=== PATIENT | female | born 1955 | race Caucasian/White ===

== ENCOUNTER → 2018-02-18 14:48 | Outpatient (CLI) | payer OTHER, SELFPAY ==
[2017-09-19 08:29] VITALS: BMI 35.1
[2018-02-25 16:09] LABS: HPV Reflexed? NOT INDICATED
== END ==
PROVIDERS: Visit Provider Obstetrics & Gynecology
DX: Z12.4 Encounter for screening for malignant neoplasm of cervix (principal)
CPT/HCPCS: 88175; G0145

== ENCOUNTER → 2018-06-08 12:36 | Outpatient (CLI) | payer MEDICARE, OTHER, SELFPAY ==
[2017-09-19 08:29] VITALS: BMI 35.1
--- NOTE | 2018-06-08 12:42 | BI_ITS ---
MAMMOGRAPHY - BILATERAL SCREENING REASON FOR EXAM: Female, 63 years old. Routine annual screening examination. PERTINENT HISTORY: Non-contributory. TECHNIQUE: Digital bilateral breast edis (3D mammographic acquisition) in the CC and MLO projections. 2-D mediolateral oblique (MLO) and craniocaudad (CC) views of both breasts were obtained. CAD: Full Field Digital Mammography with Computer Added Detection was performed. COMPARISON: Comparison is made with prior study dated May 06, 2016 and May 12, 2013. FINDINGS: Breast Composition: There are scattered areas of fibroglandular density. There are no dominant masses or suspicious calcifications. No other significant abnormalities are identified. There has been no significant change since the prior study. BI/SCREENING MAMM (CAD), BILAT IMPRESSION: Stable bilateral screening mammogram. Yearly follow-up mammogram recommended. (A) ASSESSMENT CATEGORY: BIRADS Category 1: Negative. A letter regarding these results will be sent to the patient by the facility within 30 days. Approximately 10% of breast cancers are not detected by mammography. A normal mammogram should not delay biopsy of a clinically suspicious abnormality. [id number] Electronically Signed: Callum Mena, at 15:47 EDT , Service support ,
--- NOTE | 2018-06-08 13:17 | BD_ITS ---
STUDY: DUAL ENERGY X-RAY ABSORPTIOMETRY / DXA REASON FOR EXAM: Female, 63 years old. The patient is postmenopausal. No loss of height. TECHNIQUE: Bone Mineral Density (BMD) measurements of lumbar spine and bilateral hips were obtained. COMPARISON: Comparison is made with prior study dated October 31, 2010. FINDINGS: Lumbar Spine (L1-L4): g/cm2 (1.370) / T-score (1.6) / Z-score (3.2) Findings are suggestive of normal bone density with a low fracture risk. Left Femur Total: g/cm2 (1.063) / T-score (0.4) / Z-score (1.6) Left Femoral Neck: g/cm2 (0.873) / T-score (-1.2) / Z-score (0.3) Right Femur Total: g/cm2 (0.988) / T-score (-0.2) / Z-score (1.0) Right Femoral Neck: g/cm2 (0.828) / T-score (-1.5) / Z-score (-0.1) The T-Scores on the most recent prior examination were: Lumbar Spine (L1-L4): There has been improvement of bone density since the previous examination. Left Femur Total: which represents an improvement of 8.1%. Right Femur Total: which represents an improvement of 4%. BD/Dexa Bone Density Study IMPRESSION: The patient is considered osteopenic as outlined below according to World Osorio Organization (WHO) criteria with a low fracture risk. There has been improvement of bone density since the previous examination. Reference Information: The T-score is the number of standard deviations above or below the standard which is normal for young adults at their peak bone mineral density. The World Health Organization (WHO) interprets the T-scores as follows: Above -1 Normal bone density Between -1 and -2.5 Osteopenia Equal to / or below -2.5 Osteoporosis As a practical clinical guideline, osteopenia may be graded as follows: Mild -1 through -1.5 Moderate -1.6 through -2.0 Severe -2.1 through -2.4 The Z-score is the number of standard deviations above or below age-matched controls. A Z-score of less than -1.5 would be considered abnormal. References: 1. NIH Osteoporosis and Related Bone Diseases http://www.osteo.org 2. International Society for Clinical Densitometry http://www.iscd.org 3. National Osteoporosis Foundation http://www.nof.org Electronically Signed: Callum Mena, at 14:45 EDT , Service support ,
--- NOTE | 2018-06-08 13:35 | CDU_ITS ---
Reason For Study: carotid occlusion Rt. Velocities/BP Lt. Velocities/BP Prox CCA 106/10.8 cm/sec. Prox CCA 113.8/17.3 cm/sec. Mid CCA 113.9/14.7 cm/sec. Mid CCA 116.4/18.6 cm/sec. Dist CCA 103.4/20.0 cm/sec. Dist CCA 107.3/18.6 cm/sec. Prox ICA 77.3/16.0 cm/sec. Prox ICA 76.0/19.9 cm/sec. Mid ICA 64.3/16.0 cm/sec. Mid ICA 82.5/25.2 cm/sec. Dist ICA 90.4/28.3 cm/sec. Dist ICA 96.9/34.3 cm/sec. Rt. ICA/CCA = .8. Lt. ICA/CCA = .8. Prox ECA 100.8/10.8 cm/sec. Prox ECA 86.5/12.1 cm/sec. Rt. Vert. 49.9/17.3 cm/sec. Lt. Vert. 47.3/12.1 cm/sec. Right Extracranial There is intimal thickening but no significant atherosclerotic plaque noted in the right common carotid artery. There is intimal thickening but no significant atherosclerotic plaque noted in the right internal carotid artery. There is intimal thickening but no significant atherosclerotic plaque noted in the right external carotid artery. Antegrade flow is noted in the right vertebral artery. Left Extracranial There is intimal thickening but no significant atherosclerotic plaque noted in the left common carotid artery. There is intimal thickening but no significant atherosclerotic plaque noted in the left internal carotid artery. There is intimal thickening but no significant atherosclerotic plaque noted in the left external carotid artery. Antegrade flow is noted in the left vertebral artery. Procedure Carotid Duplex 11331. The exam was diagnostic. Exam performed in department. Interpretation Summary No significant atherosclerotic plaque or stenosis noted in the internal carotid arteries bilaterally. Flow within the vertebral arteries is antegrade bilaterally. Ordering Physician: Yaneth Moffett Performed By: Michel Jaimes RVT
== END ==
PROVIDERS: Family Provider Internal Medicine; PCP Internal Medicine; Referring Provider Internal Medicine; Visit Provider Internal Medicine
DX: Z12.31 Encounter for screening mammogram for malignant neoplasm of breast (principal); Z78.0 Asymptomatic menopausal state; I65.23 Occlusion and stenosis of bilateral carotid arteries
CPT/HCPCS: 77063; 77067; 77080; 93880

== ENCOUNTER → 2018-07-08 08:57 | Outpatient (CLI) | payer MEDICARE, OTHER, SELFPAY ==
[2017-09-19 08:29] VITALS: BMI 35.1
--- NOTE | 2018-07-08 09:01 | RAD_ITS ---
STUDY: X-RAY - ESOPHAGUS (BARIUM SWALLOW) WITH FLUOROSCOPY REASON FOR EXAM: Female, 63 years old. 1 month history of dysphagia for solids and reflux. TECHNIQUE: 17 view(s) of the esophagus were obtained following swallowing of barium. FLUOROSCOPY TIME (if supplied): (0:28) minutes/seconds COMPARISON: None. FINDINGS: There is no demonstrated esophageal foreign body. There is no demonstrated stricture or mucosal abnormality. Normal gastroesophageal junction, without a demonstrated hiatal hernia. The patient ingested a 12 mm tablet of barium without any difficulty. Normal visualized aortic arch and descending thoracic aorta. Normal visualized pulmonary parenchyma. Normal visualized osseous structures of the thorax. RAD/Esophagus Only IMPRESSION: Normal plain film x-ray examination (barium swallow) of the esophagus. Electronically Signed: Callum Mena, at 10:19 EDT , Service support ,
== END ==
PROVIDERS: Family Provider Internal Medicine; PCP Internal Medicine; Referring Provider Internal Medicine; Visit Provider Internal Medicine
DX: R13.10 Dysphagia, unspecified (principal)
CPT/HCPCS: 74220

== ENCOUNTER → 2019-01-21 10:33 | Outpatient (CLI) | payer MEDICARE, OTHER, SELFPAY ==
[2017-09-19 08:29] VITALS: BMI 35.1
[2019-01-21 11:21] LABS: Anion Gap 5 (5-15); BUN 18 mg/dL (7-18); BUN/Creat Ratio 15.5 RATIO (10-20); Calcium,Total 8.8 mg/dL (8.5-10.1); Chloride 107 mmol/L (98-107); Creatinine, Serum 1.16 mg/dL (0.55-1.02); EST Glomerular Filtration Rate 50 mL/min (>60); Est Glom Filt Rate - Afr Amer 60 mL/min (>60); Glucose 115 mg/dL (74-106); Potassium 4.2 mmol/L (3.5-5.1); Sodium Level 140 mmol/L (136-145)
--- NOTE | 2019-01-21 11:30 | MRI_ITS ---
STUDY: MRI RIGHT ANKLE WITH AND WITHOUT CONTRAST REASON FOR EXAM: Female, 63 years old. Ganglion cyst. TECHNIQUE: Standarized fat and water weighted pulse sequences were obtained in all 3 orthogonal plane pre and post intravenous administration of IV Dotarem 10. COMPARISON: None. FINDINGS: There is loculated nonenhancing fluid collection at the anterior aspect including involving the extensor digitorum muscle and tendons with a component measuring 2.2 x 2.0 cm and 3.1 x 1.5 cm. Normal posterior tibialis tendon. Normal flexor digitorum longus tendon. Normal flexor hallucis longus tendon. Normal peroneus longus and brevis tendons. Normal tibialis anterior tendon. Normal extensor hallucis longus tendon. Normal extensor digitorum longus tendons. Normal Achilles tendon and teno-osseous insertion. Normal plantar fascia. Normal plantar calcaneal tubercles. Normal intrinsic muscles of the rearfoot. Normal distal tibiofibular syndesmotic ligamentous complex. Normal lateral ligamentous complex. Normal subtalar ligaments and sinus tarsi. Normal deltoid ligamentous complexes. Normal plantar calcaneonavicular (spring) ligament. Normal tibiotalar articulation. Normal talar dome. Normal subtalar articulations. Normal talonavicular articulation. Normal calcaneocuboid articulation. Normal navicular-cuneiform articulations. There is no abnormal contrast enhancement. MRI/Lower Ext Joint Only W/WO Cont IMPRESSION: Ganglia on the lateral volar aspect including involving the extensor digitorum. Electronically Signed: Carlito Reilly MD at 13:48 EST , Service support ,
== END ==
PROVIDERS: Family Provider Internal Medicine; PCP Internal Medicine; Referring Provider Podiatrist; Visit Provider Podiatrist
DX: M67.471 Ganglion, right ankle and foot (principal); D21.21 Benign neoplasm of connective and other soft tissue of right lower limb, including hip
CPT/HCPCS: 36415; 73723; 80048; A9575

== ENCOUNTER → 2019-03-17 13:16 | Outpatient (CLI) | payer MEDICARE, OTHER, SELFPAY ==
[2017-09-19 08:29] VITALS: BMI 35.1
--- NOTE | 2019-03-17 13:21 | CT_ITS ---
STUDY: CT MAXILLOFACIAL SINUSES REASON FOR EXAM: Female, 63 years old. Acute recurrent ethmoid sinusitis, antibiotics x 4, hypertension. Perceptive Pixel navigation protocol. RADIATION DOSAGE (If Supplied By Facility): CTDIvol = ( 33.06 ) mGy, DLP = ( 788.40 ) mGycm TECHNIQUE: The patient was scanned in a multi detector CT scanner. High resolution axial imaging was performed without the administration of intravenous contrast material. Sagittal and coronal images were reconstructed. Individualized dose optimization techniques were used for this CT. COMPARISON: None. FINDINGS: FRONTAL SINUSES: Normal aeration, without mucosal inflammatory disease. ETHMOIDAL SINUSES: Normal aeration, without mucosal inflammatory disease. MAXILLARY SINUSES: Normal aeration, without mucosal inflammatory disease. SPHENOIDAL SINUSES: Normal aeration, without mucosal inflammatory disease. There is patency of the bilateral maxillary infundibuli with normal uncinate processes, ethmoid bullae, and hiatus semilunaris. Normal bilateral middle turbinates. Normal bilateral inferior turbinates. There is a left sided nasal septal deviation, but without a nasal septal spur. There is patency of the bilateral nasal airways. The visualized osseous structures are normal. The visualized bilateral orbital contents are normal. CT/Sinus/Facial Bone IMPRESSION: Normal CT examination of the maxillofacial sinuses. Electronically Signed: Callum Mena, at 14:00 EST , Service support ,
== END ==
PROVIDERS: Family Provider Internal Medicine; PCP Internal Medicine; Referring Provider Otolaryngology; Visit Provider Otolaryngology
DX: J01.21 Acute recurrent ethmoidal sinusitis (principal)
CPT/HCPCS: 70486

== ENCOUNTER → 2019-08-04 | Outpatient (CLI) | payer MEDICARE, OTHER, SELFPAY ==
[2017-09-19 08:29] VITALS: BMI 35.1
--- NOTE | 2019-08-04 14:34 | RAD_ITS ---
STUDY: X-RAY - RIGHT KNEE REASON FOR EXAM: Female, 64 years old. PAIN TECHNIQUE: 4 view(s) of the knee. COMPARISON: None. FINDINGS: Normal visualized distal femur. Normal visualized proximal tibia and fibula. Normal proximal tibiofibular articulation. Normal medial femorotibial compartment. Normal lateral femorotibial compartment. Normal patellofemoral articulation. The soft tissue structures are unremarkable. RAD/Knee 4 or More Views IMPRESSION: Normal x-ray examination of the knee. Electronically Signed: Arnoldo Coronel MD at 17:09 EDT Tel , Service support ,
== END | disposition home or self-care (01) ==
PROVIDERS: PCP Internal Medicine; Referring Provider Internal Medicine; Visit Provider Internal Medicine
DX: M25.561 Pain in right knee (principal)
CPT/HCPCS: 73564

== ENCOUNTER → 2020-02-09 15:07 | Outpatient (CLI) | payer MEDICARE, OTHER, SELFPAY ==
[2017-09-19 08:29] VITALS: BMI 35.1
--- NOTE | 2020-02-09 15:08 | BI_ITS ---
MAMMOGRAPHY - BILATERAL SCREENING REASON FOR EXAM: Female, 64 years old. Routine annual screening examination. PERTINENT HISTORY: Non-contributory. TECHNIQUE: Digital bilateral breast january (3D mammographic acquisition) in the CC and MLO projections. 2-D mediolateral oblique (MLO) and craniocaudad (CC) views of both breasts were obtained. CAD: Full Field Digital Mammography with Computer Added Detection was performed. COMPARISON: Comparison is made with prior study dated 06/08/2018 and 05/06/2016. FINDINGS: Breast Composition: There are scattered areas of fibroglandular density. There are no dominant masses or suspicious calcifications. Faint 5.9 mm nodule seen in the midportion of the right breast on the craniocaudad view. Correlation with ultrasound is recommended. No other significant abnormalities are identified. BI/SCREEN MAMM (CAD) W/JANUARY BILAT IMPRESSION: Faint 5.9 mm nodule in the midportion of the right breast as described on the craniocaudad view. Correlation with ultrasound is recommended. ASSESSMENT CATEGORY: BIRADS Category 0: Incomplete. Need additional imaging evaluation. A letter regarding these results will be sent to the patient by the facility within 30 days. Approximately 10% of breast cancers are not detected by mammography. A normal mammogram should not delay biopsy of a clinically suspicious abnormality. [id number] Electronically Signed: Callum Mena, at 15:58 EST , Service support ,
== END ==
PROVIDERS: PCP Internal Medicine; Referring Provider Obstetrics & Gynecology; Visit Provider Obstetrics & Gynecology
DX: Z12.31 Encounter for screening mammogram for malignant neoplasm of breast (principal)
CPT/HCPCS: 77063; 77067

== ENCOUNTER → 2020-02-15 08:15 | Outpatient (CLI) | payer MEDICARE, OTHER, SELFPAY ==
[2017-09-19 08:29] VITALS: BMI 35.1
--- NOTE | 2020-02-15 08:18 | US_ITS ---
STUDY: ULTRASOUND BREAST - RIGHT REASON FOR EXAM: Female, 64 years old. Abnormal screening mammogram. TECHNIQUE: Axial and longitudinal images of the RIGHT breast were performed with a high resolution ultrasound transducer. # OF IMAGES: 40 COMPARISON: Comparison is made with prior mammogram dated 02/09/2020. FINDINGS: RIGHT Breast: There is a 5 mm x 6 mm x 5 mm hypoechoic solid nodule with irregular contour and heterogeneous echotexture. This is at the 11 o''clock position of the breast at 3 cm from the nipple. A biopsy is recommended. US/Breast Limited Unilateral IMPRESSION: The mammographic abnormality corresponds to a 6 mm x 5 mm x 5 mm irregular heterogeneous nodule at the 11 o''clock position of the breast at 3 cm from the nipple. A biopsy is recommended for further evaluation. ASSESSMENT CATEGORY: BIRADS Category 4: Suspicious - Biopsy Should Be Considered. A letter regarding these results will be sent to the patient by the facility within 30 days. Electronically Signed: Callum Mena, at 13:06 EST , Service support ,
== END ==
LOC: OPUS 08:16
PROVIDERS: PCP Internal Medicine; Referring Provider Obstetrics & Gynecology; Visit Provider Obstetrics & Gynecology
DX: R92.8 Other abnormal and inconclusive findings on diagnostic imaging of breast (principal)
CPT/HCPCS: 76642

== ENCOUNTER → 2020-03-05 15:30 | Outpatient (CLI) | payer MEDICARE, OTHER, SELFPAY ==
[2020-03-05 12:31] VITALS: BMI 38.4
--- NOTE | 2020-03-05 12:45 | BRBX_PTH ---
PATIENT: CHIVO VENTURA LOC: [facility] U#:[id number] AGE/SX: 69/F ROOM: RE03/05/[address]: Dr. Vito Virgen MD : [id number] BED: DIS: SPEC #: [id number] RECD: 03/05/20 15:24 STATUS: LEROY RAJIV #: [id number] KANWAL: 03/05/20 12:[address]: Vito Virgen DEPT: SURGICAL PATHOLOGY RECD BY: Ivelisse Alvarez ENTERED: 03/06/20 07:56 SP TYPE: BREAST BX OTHR DR: Dr. Yaneth Moffett, DO Tissues: Breast, NOS Procedures: Surgery Specimen Level IV HEADER OPERATION: Right breast core biopsy PRE-OP DIAGNOSIS: Abnormal right breast ultrasound TISSUE SUBMITTED: Right breast tissue MICROSCOPIC DIAGNOSIS Right breast, core biopsy: Fibrocystic change. Intraductal hyperplasia without atypia. No evidence of malignancy. AM:viktoria 03/07/2020 MICROSCOPIC DESCRIPTION Slides are reviewed. GROSS DESCRIPTION Received in fixative is one container labeled with the patient name and designated right breast. The specimen consists of multiple elongated fragments of lopez-yellow fibroadipose tissue that in aggregate measure 1 x 0.3 x 0.1 cm. The entire specimen is submitted in one cassette. / SJ:viktoria 03/06/20 TC:5 CPT: 90140
== END ==
PROVIDERS: PCP Internal Medicine; Referring Provider Surgery; Visit Provider Surgery
DX: N62 Hypertrophy of breast (principal)
CPT/HCPCS: 88305

== ENCOUNTER → 2020-03-20 09:16 | Outpatient (CLI) | payer MEDICARE, OTHER, SELFPAY ==
[2020-03-05 12:31] VITALS: BMI 38.4
--- NOTE | 2020-03-20 09:18 | BI_ITS ---
MAMMOGRAPHY - UNILATERAL DIAGNOSTIC: RIGHT BREAST REASON FOR EXAM: Female, 64 years old. Clip placement following ultrasound-guided breast biopsy. PERTINENT HISTORY: TECHNIQUE: Mediolateral oblique and craniocaudad views of the right breast were obtained. CAD: Full Field Digital Mammography with Computer Added Detection was performed. COMPARISON: Comparison is made with prior mammogram dated 02/09/2020. FINDINGS: Breast Composition: There are scattered areas of fibroglandular density. There are no dominant masses or suspicious calcifications. A tissue clip marker is seen in the superior retroareolar region of the right breast. No other significant abnormalities are identified. BI/DIAG MAMM W/CAD, UNILAT IMPRESSION: The tissue clip marker is seen in the superior retroareolar region of the right breast. ASSESSMENT CATEGORY: BIRADS Category 2: Benign. A letter regarding these results will be sent to the patient by the facility within 30 days. Approximately 10% of breast cancers are not detected by mammography. A normal mammogram should not delay biopsy of a clinically suspicious abnormality. Electronically Signed: Callum Mena MD at 10:33 EST , Service support ,
== END ==
PROVIDERS: PCP Internal Medicine; Referring Provider Surgery; Visit Provider Surgery
DX: R92.2 Inconclusive mammogram (principal)
CPT/HCPCS: 77065

== ENCOUNTER 2021-04-18 08:00 | Outpatient (CLI) | payer MEDICARE, OTHER, SELFPAY ==
--- NOTE | 2021-04-18 08:03 | BI_ITS ---
MAMMOGRAPHY - BILATERAL SCREENING REASON FOR EXAM: Female, 65 years old. Routine annual screening examination. PERTINENT HISTORY: Non-contributory. History of prior right ultrasound-guided breast biopsy. TECHNIQUE: Digital bilateral breast january (3D mammographic acquisition) in the CC and MLO projections. 2-D mediolateral oblique (MLO) and craniocaudad (CC) views of both breasts were obtained. CAD: Full Field Digital Mammography with Computer Added Detection was performed. COMPARISON: Comparison is made with prior study dated 11/10/2019 and 06/08/2018. FINDINGS: Breast Composition: There are scattered areas of fibroglandular density. There are no dominant masses or suspicious calcifications. A tissue clip marker is seen in the superior retroareolar region of the right breast. No other significant abnormalities are identified. BI/SCRN MAMM (CAD)W/JANUARY BILAT IMPRESSION: Stable bilateral screening mammogram. Yearly follow-up mammogram recommended. (A) ASSESSMENT CATEGORY: BIRADS Category 2: Benign. A letter regarding these results will be sent to the patient by the facility within 30 days. Approximately 10% of breast cancers are not detected by mammography. A normal mammogram should not delay biopsy of a clinically suspicious abnormality. [id number] Electronically Signed: Callum Mena MD at 9:07 EST ,
== END 2021-04-18 23:59 | disposition home or self-care (01) ==
LOC: OPBI 08:01
PROVIDERS: PCP Internal Medicine; Visit Provider Obstetrics & Gynecology
DX: Z12.31 Encounter for screening mammogram for malignant neoplasm of breast (principal)
CPT/HCPCS: 77063; 77067

== ENCOUNTER 2021-06-10 12:31 | Outpatient (CLI) | payer MEDICARE, OTHER, SELFPAY ==
--- NOTE | 2021-06-10 12:36 | RAD_ITS ---
INDICATION: PAIN EXAMINATION/TECHNIQUE: X-RAY - LEFT XR Hip Unilateral with Pelvis when performed; 2-3 Views 3 VIEWS COMPARISON: 02/10/2013. FINDINGS: SOFT TISSUES: No soft tissue swelling or gas. No radiopaque foreign body. Narrowing of the hip joint spaces is visualized most prominent involving the left hip joint. There is moderate severe narrowing of the superior lateral joint space, increased density along the articular surfaces is visualized with mild irregularity seen in the contour of the left femoral head. No evidence of cortical irregularities or lucencies to suggest fracture. No evidence of dislocation is seen. Degenerative changes in the carpal bones is seen most prominent at the lumbosacral junction. Abundance of stool visualized in the large bowel and rectum. RAD/HIP, UNI W/ Pelvis 2-3 Views IMPRESSION: Degenerative changes visualized with narrowing of the left hip joint space. No acute osseous abnormality is seen. Electronically Signed: Felix Alfonso MD at 12:54 EDT ,
== END 2021-06-10 23:59 | disposition home or self-care (01) ==
PROVIDERS: PCP Internal Medicine; Referring Provider Internal Medicine; Visit Provider Internal Medicine
DX: M79.605 Pain in left leg (principal)
CPT/HCPCS: 73502

== ENCOUNTER → 2021-11-19 | Outpatient (CLI) | payer MEDICARE, OTHER, SELFPAY ==
--- NOTE | 2021-11-19 08:51 | EKG12_ITS ---
Test Reason : PREOP Blood Pressure : / mmHG Vent. Rate : 060 BPM Atrial Rate : 060 BPM P-R Int : 144 ms QRS Dur : 082 ms QT Int : 414 ms P-R-T Axes : 026 -23 -02 degrees QTc Int : 414 ms Normal sinus rhythm Normal ECG Confirmed by BELLA CASAS, GENOVEVA ([id number]), society editor PARTHA ROBERTS ([id number]) on 11/20/2021 9:04:50 AM Referred By: Tex Ventura Confirmed By:GENOVEVA BLANCO MD
[2021-11-19 10:02] LABS: Absolute Lymphocyte Count 1.35 X10^3/uL (0.83-4.51); Absolute Neutrophil Count 3.1 X10^3/uL (2.0-7.7); Basophil# 0.06 X10^3/uL; Basophil% 1.1 % (0-1); Eosinophil# 0.25 X10^3/uL; Eosinophils% 4.7 % (0-5); Hematocrit 35.2 % (37-47); Hemoglobin 11.7 g/dL (12.0-15.0); Lymphocyte # 1.35 X10^3/ul (0.83-4.51); Lymphocyte % 25.5 % (19-41); Mean Corp Hgb Conc 33.2 g/dL (32-36); Mean Corpuscular Hgb 30.5 pg (27.0-32.0); Mean Corpuscular Volume 91.7 fL (81-99); Mean Platelet Vol. 10.6 fl (6.2-12.0); Monocyte# 0.52 X10^3/uL; Monocyte% 9.8 % (0-10); NRBC Flagged by Analyzer 0 % (0-5); Neutrophil % 58.7 % (47-70); Platelet Count 236 K/mm3 (150-450); RBC Distribution Width CV 14.2 % (11.6-14.6); RBC Distribution Width SD 47.5 fl (35.1-43.9); Red Blood Count 3.84 M/mm3 (4.2-5.4); White Blood Count 5.3 K/mm3 (4.4-11.0)
[2021-11-19 10:20] LABS: Albumin, Serum 2.8 g/dL (3.2-5.0); Anion Gap 4 (5-15); BUN 19 mg/dL (7-18); BUN/Creat Ratio 18.8 RATIO (10-20); Calcium,Total 8.9 mg/dL (8.5-10.1); Chloride 108 mmol/L (98-107); Creatinine, Serum 1.01 mg/dL (0.55-1.02); EST Glomerular Filtration Rate 58 mL/min (>60); Est Glom Filt Rate - Afr Amer 70 mL/min (>60); Glucose 116 mg/dL (74-106); Sodium Level 141 mmol/L (136-145)
== END | disposition home or self-care (01) ==
LOC: PSN 08:49
PROVIDERS: PCP Internal Medicine; Referring Provider Physician Assistant Surgical; Visit Provider Physician Assistant Surgical
DX: Z01.818 Encounter for other preprocedural examination (principal); Z01.810 Encounter for preprocedural cardiovascular examination
CPT/HCPCS: 36415; 80048; 82040; 85025; 93005

== ENCOUNTER → 2021-11-21 | Outpatient (CLI) | payer MEDICARE, OTHER, SELFPAY ==
[2021-11-21 15:48] LABS: Albumin, Serum 3.2 g/dL (3.2-5.0)
== END | disposition home or self-care (01) ==
LOC: LABSPEC 15:09
PROVIDERS: PCP Internal Medicine; Visit Provider Internal Medicine
DX: R77.0 Abnormality of albumin (principal)
CPT/HCPCS: 82040

== ENCOUNTER → 2021-12-31 | Outpatient (CLI) | payer MEDICARE, OTHER, SELFPAY ==
[2021-12-31 08:58] LABS: Absolute Lymphocyte Count 1.48 X10^3/uL (0.83-4.51); Absolute Neutrophil Count 4.6 X10^3/uL (2.0-7.7); Basophil# 0.05 X10^3/uL; Basophil% 0.7 % (0-1); Eosinophil# 0.24 X10^3/uL; Eosinophils% 3.5 % (0-5); Hemoglobin 11.3 g/dL (12.0-15.0); Lymphocyte # 1.48 X10^3/ul (0.83-4.51); Lymphocyte % 21.4 % (19-41); Mean Corp Hgb Conc 33.2 g/dL (32-36); Mean Corpuscular Hgb 29.7 pg (27.0-32.0); Mean Corpuscular Volume 89.2 fL (81-99); Mean Platelet Vol. 10.5 fl (6.2-12.0); Monocyte# 0.51 X10^3/uL; Monocyte% 7.4 % (0-10); NRBC Flagged by Analyzer 0 % (0-5); Neutrophil # 4.62 X10^3/uL (2.7-7.7); Neutrophil % 66.7 % (47-70); Platelet Count 267 K/mm3 (150-450); RBC Distribution Width CV 13.7 % (11.6-14.6); RBC Distribution Width SD 44.7 fl (35.1-43.9); Red Blood Count 3.81 M/mm3 (4.2-5.4); White Blood Count 6.9 K/mm3 (4.4-11.0)
[2021-12-31 09:24] LABS: Albumin, Serum 2.9 g/dL (3.2-5.0)
== END | disposition home or self-care (01) ==
LOC: LAB 08:03
PROVIDERS: PCP Internal Medicine; Referring Provider Specialist; Visit Provider Specialist
DX: M16.12 Unilateral primary osteoarthritis, left hip (principal)
CPT/HCPCS: 36415; 82040; 85025

== ENCOUNTER 2022-01-14 14:30 | Outpatient (RCR) | payer MEDICARE, OTHER, SELFPAY ==
--- NOTE | 2021-11-27 10:49 | HP.PTEVAL ---
Patient's Visit Information CHIVO VENTURA is a 66 year old F referred to Physical Therapy by Dr. Juan Bush MD with a diagnosis of L hip OA. Date of Evaluation: 11/27/21 Physical Therapist: Andres Kaplan, DPT, OCS, CSCS - Visit Plan Frequency: 2-3x /Week Duration: 4-6 Weeks Plan: 2x/week for 4-6 weeks for. Pool based. hip flexor stretches L. hip ROM. 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 pt to have L DEVYN at some point in future when blood work is normal - Subjective L hip is a mess. In May she injured her labrum and quickly deteriorated into stage 4 OA. Injured it sitting on floor and spreading legs in weird manner and got sudden groin pain. Pain worsening since then. Had therapy at [facility] and looking toward DEVYN that was supposed to occur 11/28 but cancelled due to low protein levels in body . Now doctor wants water therapy. Daily pain is up to 9/10 with walking or pivotting certain ways. Sudden movements can make her worse. Getting up out of chair is worse. Lower level pain at rest 3/10. Sleep is OK.Sleep on Right side is better. Using wh walker to get around as it is safer. Activities are interrupted, I can't clean, I can't do yard work or lift or carry anything, can't go through grocery store. Work. 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 Stairs: avoiding at home due to this. Has not been in basement. Exercises: No , doesn't like exercise. - Pain L groin Pain Intensity (Out of 10): 3 Pain Intensity Range: 3, 9 - Objective Walks with wh walker with out pain increase, walking without AD is I but immediate 8/10 pain with WB. Transfers I chair and bed, hesitant L hip movement. PROM L hip to 100 with pain flexion, 22 abduction pain,45 er with pain, 10 IR with pain, 5 extension with pain. Tightness present in hip flexors. R hip ROM is painfree and WFL. Knee adn ankle aROM B WFL and without increased pain, 4/5 strength. L hip strength 3/5 due to pain in all directions. reflexes 2/3 patella and achilles. Sensation WNL to gross light touch. + L hip scouring. + YOU. + FADDIR - Balance/Special Test Scores Lower Extremity Functional Score: 19 - Goals Goal 1:: Pt I in appropriate poo strength adn ROm to limit future problems and prepare for surgery Goal Time Frame: 4-6 Weeks Goal 2:: Pt feel 50% better in overall hip pain to 4/10 at worst Goal Time Frame: 4-6 Weeks Goal 3:: LEFS score 40 Goal Time Frame: 4-6 Weeks - Rehabilitation Potential Physical Therapy Diagnosis: L hip degeneration causing pain. Rehabilitation Potential: Fair - Anticipated Interventions Patient/Client Instruction: Educate patient on: Condition, Plan of Care For the Purpose of:: To decrease pain, To improve nutrient delivery to tissue, To improve muscle performance and motor function Therapeutic Exercise to Include: Strength training, Flexibilty training, In an aquatic setting, Active ROM For the Purpose of:: To decrease pain, To increase ROM, To improve muscle performance and motor function Thank you for the opportunity to evaluate your patient. For Medicare and Medicare HMO plans, please review the plan of care and approve it. It will need to be FAXED BACK to us at [phone] for Medicare purposes. For Medicare only, by signing this I certify the plan of care. Please let me know if there are questions or concerns regarding this plan of care. Physician Signature: Date:
--- NOTE | 2021-12-31 10:29 | HP.PTREVAL ---
Dr. Juan Bush MD, It has been my pleasure to treat CHIVO VENTURA over the last 9 visits for L hip OA. Please see the progress note below for an update on the physical therapy plan of care! Subjective: Making progress. water has been phenomenal. Able to do things in there that she could not do prior. Sitting , standing and walking is going better. Has more hip function now as she can walk more often with less assistance, still short distances though. Rolling in bed and getting in and out of car, up and down from chair are stronger and tolerated better. Turning is easier but still cannot pivot. Still gets up to 8/10 with she overdoes yard or housework. At work she sits all day fairly comfortably, but sitting in wrong chair for too long can aggravate it. Normally it. 2/10 walking back today. Activities are still limited in cleaiing and working in the yard. HEP doing core strength adn NS positioning, ER hip stretch, muscle pumps. Stamina feels better. Got new wh walker which helps. Sees doctor , hoping for surgery to replace hip. Objective/Function: +5 on LEFS. Walking 250 feet today without AD slowly and hesitantly but no antalgia. Hip ROM L 50 ext rotation and 15 IR with pain at end range, groin pain end range extension also. Steps are reciprocal with pain WB L side. 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 Balance/Gait/Functional tests - Balance/Special Test Scores Functional Gait Assessment Score: 25 % Disability: 16.6700 Lower Extremity Functional Score: 24 Goals Goal 1:: Pt I in appropriate poo strength adn ROm to limit future problems and prepare for surgery Goal Time Frame: 4-6 Weeks Goal Progress: Progressing Goal 2:: Pt feel 50% better in overall hip pain to 4/10 at worst Goal Time Frame: 4-6 Weeks Goal Progress: 20% Goal 3:: LEFS score 40 Goal Time Frame: 4-6 Weeks Goal Progress: slow progression. Anticipated Interventions Patient/Client Instruction: Educate patient on: Condition, Plan of Care For the Purpose of:: To decrease pain, To improve nutrient delivery to tissue, To improve muscle performance and motor function Therapeutic Exercise to Include: Strength training, Flexibilty training, In an aquatic setting, Active ROM For the Purpose of:: To decrease pain, To increase ROM, To improve muscle performance and motor function Please do not hesitate to contact me at [phone] by phone or if you have questions or concerns regarding this new plan of care! Sincerely, Andres Kaplan, JAMEST, OCS, CSCS
--- NOTE | 2022-03-04 12:55 | HP.PT.NRP ---
CHIVO ANGELIA VENTURA was seen in my office for initial evaluation on 11/27/21. The following Plan of Care was established for this patient: Initial Frequency: 2-3x /Week Initial Duration: 4-6 Weeks Patient/Client Instruction: Educate patient on: Condition, Plan of Care For the Purpose of:: To decrease pain, To improve nutrient delivery to tissue, To improve muscle performance and motor function Therapeutic Exercise to Include: Strength training, Flexibilty training, In an aquatic setting, Active ROM For the Purpose of:: To decrease pain, To increase ROM, To improve muscle performance and motor function This patient was last seen in our office 01/14/22. Pertinent comments regarding their Physical therapy will appear below: Pt seen 11 visits of POC in water for therapy and was 20+% better. She was scheduled to have a DEVYN in January. I will discontine this current session of care. At this point I will be discontinuing this patient from physical therapy. I would be happy to see this patient again in the future if found appropriate by the physician. Thank you! Andres Kaplan, DPT, OCS, CSCS Balance/Gait/Functional tests - Balance/Special Test Scores Functional Gait Assessment Score: 25 % Disability: 16.6700 Lower Extremity Functional Score: 24
== END 2022-01-14 19:00 | disposition home or self-care (01) ==
LOC: PT 14:30
PROVIDERS: PCP Internal Medicine; Referring Provider Specialist; Visit Provider Specialist
DX: M16.12 Unilateral primary osteoarthritis, left hip (principal); E66.8 Other obesity; Z68.36 Body mass index [BMI] 36.0-36.9, adult
CPT/HCPCS: 97113; 97161; 97530

== ENCOUNTER → 2022-09-11 | Outpatient (CLI) | payer MEDICARE, OTHER, SELFPAY ==
--- NOTE | 2022-09-11 08:40 | BI_ITS ---
MAMMOGRAPHY - BILATERAL SCREENING 3-D TOMOSYNTHESIS REASON FOR EXAM: Female, 67 years old. Routine screening PERTINENT HISTORY: No significant family history. TECHNIQUE: 2-D mammograms and 3-D Tomosynthesis of the breast (s) were performed. CAD was performed. COMPARISON: 04/18/2021 FINDINGS: The breast composition is composed of scattered fibroglandular density. Scattered benign calcifications are seen. No dense spiculated masses or suspicious microcalcifications are identified. No architectural distortion is identified. There is no skin thickening or retraction. There has been no significant change since the prior study. BI/SCRN MAMM (CAD)W/JANUARY BILAT IMPRESSION: No mammographic signs of malignancy. Routine yearly mammograms recommended. ASSESSMENT CATEGORY: BIRADS Category 1: Negative. A letter regarding these results will be sent to the patient by the facility within 30 days. FOLLOW UP RECOMMENDATION: Yearly follow up mammogram recommended. (A) Approximately 10% of breast cancers are not detected by mammography. A normal mammogram should not delay biopsy of a clinically suspicious abnormality. Electronically Signed: Babak Jacome MD at 10:33 EDT ,
--- NOTE | 2022-09-11 08:55 | CDU_ITS ---
Reason For Study: OCCLUSION/STENOSIS BILATERAL CAROTID ARTERIES Rt. Velocities/BP Lt. Velocities/BP Prox CCA 172.2/20.6 cm/sec. Prox CCA 141.7/28.5 cm/sec. Mid CCA 96.6/21.7 cm/sec. Mid CCA 134.4/23.0 cm/sec. Dist CCA 83.4/23.2 cm/sec. Dist CCA 99.7/24.8 cm/sec. Prox ICA 83.4/10.9 cm/sec. Prox ICA 100.2/20.4 cm/sec. Mid ICA 66.2/18.3 cm/sec. Mid ICA 92.8/25.3 cm/sec. Dist ICA 48.9/12.0 cm/sec. Dist ICA 97.7/35.1 cm/sec. Rt. ICA/CCA = 83.4/96.6=0.9. Lt. ICA/CCA = 100.2/134.4=0.7. Prox ECA 88.3/7.2 cm/sec. Prox ECA 119.8/15.7 cm/sec. Rt. Vert. 62.5/17.1 cm/sec. Lt. Vert. 69.5/20.4 cm/sec. Right Extracranial There is intimal thickening but no significant atherosclerotic plaque noted in the right common carotid artery. There is heterogeneous, smooth atherosclerotic plaque noted in the right internal carotid artery. There is intimal thickening but no significant atherosclerotic plaque noted in the right external carotid artery. Antegrade flow is noted in the right vertebral artery. Left Extracranial There is intimal thickening but no significant atherosclerotic plaque noted in the left common carotid artery. There is heterogeneous, smooth atherosclerotic plaque noted in the left internal carotid artery. There is intimal thickening but no significant atherosclerotic plaque noted in the left external carotid artery. Antegrade flow is noted in the left vertebral artery. Procedure Carotid Duplex [id number]. This is a Carotid Duplex examination using B-mode, color flow and specral Doppler. Exam performed in department. VL/Carotid Duplex Ultrasound Interpretation Summary Mild (<50%) stenosis right extracranial internal carotid. Mild (<50%) stenosis left extracranial internal carotid. Patent and antegrade vertebrals bilaterally. Ordering Physician: Yaneth Moffett Referring Physician: Yaneth Moffett Performed By: Mari Stallings RDCS, RVT
== END | disposition home or self-care (01) ==
PROVIDERS: PCP Internal Medicine; Referring Provider Internal Medicine; Visit Provider Internal Medicine
DX: Z12.31 Encounter for screening mammogram for malignant neoplasm of breast (principal); I65.23 Occlusion and stenosis of bilateral carotid arteries
CPT/HCPCS: 77063; 77067; 93880

== ENCOUNTER → 2024-03-07 | Outpatient (CLI) | payer MEDICARE, SELFPAY ==
--- NOTE | 2024-03-07 08:44 | BI_ITS ---
MAMMOGRAPHY - BILATERAL SCREENING REASON FOR EXAM: Female, 68 years old. Routine annual screening examination. PERTINENT HISTORY: Non-contributory. History of prior left ultrasound-guided breast biopsy. TECHNIQUE: Digital bilateral breast january (3D mammographic acquisition) in the CC and MLO projections. 2-D mediolateral oblique (MLO) and craniocaudad (CC) views of both breasts were obtained. CAD: Full Field Digital Mammography with Computer Added Detection was performed. COMPARISON: Comparison is made with prior study dated September 11, 2022 and April 18, 2021. FINDINGS: Breast Composition: There are scattered areas of fibroglandular density. There are no dominant masses or suspicious calcifications. A tissue clip marker is seen in the right retroareolar region. No other significant abnormalities are identified. There has been no significant change since the prior study. BI/SCRN MAMM (CAD)W/JANUARY BILAT IMPRESSION: Stable bilateral screening mammogram. Yearly follow-up mammogram recommended. (A) ASSESSMENT CATEGORY: BIRADS Category 2: Benign. A letter regarding these results will be sent to the patient by the facility within 30 days. Approximately 10% of breast cancers are not detected by mammography. A normal mammogram should not delay biopsy of a clinically suspicious abnormality. [id number] Electronically Signed: Callum Mena MD at 10:02 EST ,
== END | disposition home or self-care (01) ==
LOC: OPBI 08:42
PROVIDERS: PCP Internal Medicine; Referring Provider Internal Medicine; Visit Provider Internal Medicine
DX: Z12.31 Encounter for screening mammogram for malignant neoplasm of breast (principal)

== ENCOUNTER → 2025-01-09 | Outpatient (CLI) | payer MEDICARE, SELFPAY ==
--- NOTE | 2025-01-09 08:44 | EKG12_ITS ---
Test Reason : PREOP Blood Pressure : */* mmHG Vent. Rate : 74 BPM Atrial Rate : 74 BPM P-R Int : 136 ms QRS Dur : 82 ms QT Int : 394 ms P-R-T Axes : 19 -28 9 degrees QTcB Int : 437 ms Normal sinus rhythm Moderate voltage criteria for LVH, may be normal variant Borderline ECG Confirmed by ELSA CASAS, ABY ([id number]), publication editor PARTHA ROBERTS ([id number]) on 01/09/2025 1:25:41 PM Referred By: Juan Bush Confirmed By: ABY HUNTER MD
[2025-01-09 09:35] LABS: Hematocrit 33.2 % (37-47); Hemoglobin 11.2 g/dL (12.0-15.0); Immature Granulocytes Count 0.020 X10^3/uL (0.0-0.0); Mean Corp Hgb Conc 33.7 g/dL (32-36); Mean Corpuscular Volume 91.0 fL (81-99); Mean Platelet Vol. 10.1 fl (6.2-12.0); NRBC Flagged by Analyzer 0 % (0-5); Platelet Count 261 K/mm3 (150-450); RBC Distribution Width CV 14.2 % (11.6-14.6); RBC Distribution Width SD 47.8 fl (35.1-43.9); Red Blood Count 3.65 M/mm3 (4.2-5.4); White Blood Count 5.3 K/mm3 (4.4-11.0)
[2025-01-09 10:10] LABS: Albumin, Serum 3.8 g/dL (3.4-4.8); Anion Gap 11 (5-15); BUN 23 mg/dL (4-19); BUN/Creat Ratio 19.8 RATIO (10-20); Calcium,Total 9.2 mg/dL (7.6-11.0); Carbon Dioxide 24.8 mmol/L (21.0-32.0); Chloride 103 mmol/L (98-108); Glucose 152 mg/dL (70-99); Potassium 3.9 mmol/L (3.3-5.1)
== END | disposition home or self-care (01) ==
LOC: PSN 08:41
PROVIDERS: PCP Internal Medicine; Referring Provider Specialist; Visit Provider Specialist
DX: Z01.810 Encounter for preprocedural cardiovascular examination (principal); Z01.818 Encounter for other preprocedural examination
CPT/HCPCS: 36415; 80048; 82040; 85025; 93005

== ENCOUNTER → 2025-02-02 | Outpatient (CLI) | payer MEDICARE, SELFPAY ==
--- NOTE | 2025-02-02 11:15 | HIP_PTH ---
PATIENT: CHIVO VENTURA LOC: [facility] U#:[id number] AGE/SX: 69/F ROOM: RE02/02/[address]: Dr. Juan Bush MD : [id number] BED: DIS: 02/02/2025 SPEC #: [id number] RECD: 02/02/25 15:01 STATUS: LEROY REJoe #: [id number] KANWAL: 02/02/25 11:[address]: Juan Bush DEPT: SURGICAL PATHOLOGY RECD BY: Jossue Hernandez ENTERED: 02/03/25 10:58 SP TYPE: TOTAL HIP OTHR DR: Dr. Yaneth Moffett, DO Tissues: A - Hip, NOS Procedures: Decalcification bone/plaque Surgery Specimen Level III HEADER OPERATION: Anterior right total hip arthroplasty PRE-OP DIAGNOSIS: Right hip osteoarthritis with avascular necrosis TISSUE SUBMITTED: A- Right hip bone and tissue MICROSCOPIC DIAGNOSIS A. 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 GROSS DESCRIPTION A. Received in formalin labeled with the patient's name and date of . Designated as bone and tissue right hip is a 10.5 x 8.5 x 2.2 cm aggregate of blood clot, irregular bone and tissue fragments, 1 of which contains a long, undesignated suture. The 4.2 x 3.8 x 3.2 cm femoral head is irregular with a detached portion of femoral neck, 1.3 cm in length by 4.1 cm in diameter. The articular cartilage is lopez-red, granular, partially detached and nodular with patchy eburnation. Sectioning reveals lopez-red trabeculated medullary bone with a 2.5 x 1.8 cm slightly irregular, pale wedge-shaped area that is suspicious for necrosis. [employer]ician sections are submitted in 2 cassettes, following decalcification as follows: A1: Femoral head with pale wedge-shaped area suspicious for necrosisA2: Femoral neck NH 02/03/2025PT:[id number]
== END | disposition home or self-care (01) ==
LOC: LABSPEC 15:17
PROVIDERS: PCP Internal Medicine; Referring Provider Specialist; Visit Provider Specialist
DX: M16.11 Unilateral primary osteoarthritis, right hip (principal); M87.9 Osteonecrosis, unspecified
CPT/HCPCS: 88304; 88311